=== PATIENT | male | born 1940 | race Two or more races ===

== ENCOUNTER 2022-04-17 10:57 | Emergency (ER) | payer OTHER ==
[~2022-04-17] VITALS: Ht 170.2 cm; Wt 74.8 kg
[~2022-04-17 10:57] MED LIST: COZAAR50 MG PO
== END 2022-04-17 16:27 | disposition home or self-care (01) ==
LOC: ER 10:57
DX: K57.90 Diverticulosis of intestine, part unspecified, without perforation or abscess without bleeding (principal); I10 Essential (primary) hypertension; Z85.46 Personal history of malignant neoplasm of prostate

== ENCOUNTER 2023-05-20 09:52 | Emergency (ER) | payer OTHER ==
[~2023-05-20] VITALS: Ht 170.2 cm; Wt 74.8 kg
[2023-05-20] MEDS ORDERED: LEVOTHYROXINE125 MCG (10:25)
[2023-05-20 14:15] LABS: HEMATOCRIT 36.4 % (39.0-48.0); HEMOGLOBIN 12.3 g/dL (13-16.00); MEAN CORPUSCULAR HEMOGLOBIN 31.5 pg (27.00-32.0); MEAN CORPUSCULAR HGB CONC 33.9 g/dl (32.0-36.0); PLATELET COUNT 418 K/uL (150-450); RED BLOOD COUNT 3.91 M/uL (4.00-6.00); RED CELL DISTRIBUTION WIDTH 16.8 % (11.5-14.5)
== END 2023-05-20 16:35 | disposition home or self-care (01) ==
LOC: ER 09:52
PROVIDERS: Emergency Medicine
DX: R53.81 Other malaise (principal); R05.9 Cough, unspecified; Z20.822 Contact with and (suspected) exposure to COVID-19
CPT/HCPCS: 36415; 71046; 94640; 96365; 99283; J1940; J2930